=== PATIENT | female | born 1950 | race Caucasian/White ===

== ENCOUNTER 2018-09-29 10:30 | Outpatient (RCR) | payer MEDICARE, OTHER, SELFPAY ==
--- NOTE | 2018-09-08 14:25 | PT.OIE ---
Current Diagnoses Stress incontinence (female) (male) (09/08/18) Other female genital prolapse (09/08/18) Provider Visit Care Team Role Provider Type Floyd Bai MD Family Provider Physician Primary Care Provider Specialty: Internal Medicine Address: [address] [place] [address], [id number] Email: Shirin Dwyer MD Attending Provider Physician Specialty: COMPUTER SECURITY SPECIALIST Address: [address] [place] [address], [address] Email: [email or web address] Physical Therapy Initial Evaluation PT-OP-A Visit Information Start: 09/08/18 14:02 Freq: Status: Active Protocol: Document 09/08/18 14:02 [facility] (Rec: 09/08/18 14:25 [facility] [email or web address]) Out-Patient Physical Therapy Visit Information Visit Information Visit Type Initial Evaluation Visit Start Time 09:45 Visit Stop Time 10:30 Total Visit Minutes 45 Visit Number 1 Number of SIGNALS ANALYST Visits 0 Evaluation Information Evaluation Date 09/08/18 PT-OP-B Current Condition Start: 09/08/18 14:02 Freq: Status: Active Protocol: Document 09/08/18 14:02 [facility] (Rec: 09/08/18 14:25 [facility] [email or web address]) Current Condition History of Current Condition Onset Date 4-5 months ago Current Complaints c/o pelvic pressure and heaviness History of Current Condition 68 year old active female who was out gardening 4-5 months ago and began feeling complaints of pelvic pressure and soreness in the pelvic region Treatment Goals Patient/Caregiver Goals include avoiding surgery if she is able to and improving strength of the pelvic floor Current Functional Impairments (Reported) Functional Limitations- Recreation/ limitations with gardening, Hobbies has held off on aqua aerobics due to concern that it is putting too much pressure down on her bladder PT-OP-I Pelvic Floor Start: 09/08/18 14:02 Freq: Status: Active Protocol: Document 09/08/18 14:02 [facility] (Rec: 09/08/18 14:25 [facility] [email or web address]) Pelvic Floor Assessment Urine Pelvic Floor Surgery No Urinary Symptoms Falling Out Feeling/Heavy Leakage Size Small Leakage Cause Exercise Urge Leaks Per Day 1 SEMG (uV) Baseline 2.0 10 Second Contraction 6.1 Recruitment Pattern Fair Relaxation Fair Holding Fair Stability of Hold Fair SEMG Stability of Rest Fair Contraction Ability Manual Muscle Testing Left 3 Manual Muscle Testing Right 3 Manual Muscle Testing Anterior 3 Manual Muscle Testing Posterior 3 Comments Pelvic Floor Comments average contraction intensity on EMG biofeedback is 3.5 uv with 6.1 uv max contraction There is guarding on the left lateral wall of the levator ani and Zita reports tightness and history of pain in her left hip. Both rectocele and cystocele noted PT-OP-Q Treatments Start: 09/08/18 14:02 Freq: Status: Active Protocol: Document 09/08/18 14:02 [facility] (Rec: 09/08/18 14:25 [facility] [email or web address]) Therapeutic Exercises Supine Exercises 1 Supine Exercise Name Pelvic floor education with EMGbiofeedback and instruction in HEP Reps/Minutes long holds 10 seconds on 10 seconds off x 10 reps 3 xms per day PT-OP-T Assessment and Plan Start: 09/08/18 14:02 Freq: Status: Active Protocol: Document 09/08/18 14:02 [facility] (Rec: 09/08/18 14:25 [facility] [email or web address]) Physical Therapy Assessment Impairments Impairments Activity Tolerance Pain Soft Tissue Mobility Strength Goals Three Impairment muscle guarding and spasm of the left illiococcygeus Short Term Goal (STG) improve flexibility of the left hip and improve tone of the left lateral wall of the pelvic floor STG Duration 6 weeks Two Impairment c/o pelvic pressure and heaviness made worse with walking Disability Attorney Goal (LTG) Decrease c/o pelvic pressure and heaviness with pelvic floor, transverse abdominal and hip strengthening exercises LTG Duration 8 weeks One Impairment pelvic floor weakness with urinary stress incontinence Disability Attorney Goal (LTG) Improve strength of the pelvic floor to help decrease c/o urinary incontinence and improve support to the bladder and rectum LTG Duration 8 weeks Assessment Summary Assessment Zita presents to physical therapy today with weakness of the pelvic floor and elevated tone on the left lateral wall . She reports having hip issues on this side as well and has had a few cortisone injections into the left hip. She does present with a rectocele and bladder prolapse but she has only had symptoms of the prolapse for the past 5 months. She also presents with urinary stress incontinence symptoms. Zita is a good candidate for PT. Physical Therapy Plan Frequency and Duration Frequency of Treatment 1x/Week Duration of Treatment 8 weeks Plan of Care Start Date 09/08/18 Plan of Care End Date 11/03/18 Therapeutic Interventions Therapeutic Interventions Home Exercise Program Manual Therapy Neuromuscular Re-education Self-Care/Home Management Soft Tissue Mobilization Therapeutic Exercises Modalities Biofeedback Electric Stimulation Next Visit Focus/Plan Next Note Type Treatment Note Next Visit Plan begin working the lateral hip rotators and give stretches for hip flexibility
--- NOTE | 2018-09-08 14:25 | PT.OPPOC ---
Current Diagnoses Stress incontinence (female) (male) (09/08/18) Other female genital prolapse (09/08/18) Provider Visit Care Team Role Provider Type Floyd Bai MD Family Provider Physician Primary Care Provider Specialty: Internal Medicine Address: [address] [place] [address], [id number] Email: Shirin Dwyer MD Attending Provider Physician Specialty: LOG HAULER Address: [address] [place] [address], [id number] Email: [email or web address] Plan Of Care PT-OP-T Assessment and Plan Start: 09/08/18 14:02 Freq: Status: Active Protocol: Document 09/08/18 14:02 [facility] (Rec: 09/08/18 14:25 [facility] [email or web address]) Physical Therapy Assessment Impairments Impairments Activity Tolerance Pain Soft Tissue Mobility Strength Goals Three Impairment muscle guarding and spasm of the left illiococcygeus Short Term Goal (STG) improve flexibility of the left hip and improve tone of the left lateral wall of the pelvic floor STG Duration 6 weeks Two Impairment c/o pelvic pressure and heaviness made worse with walking Crankshaft Straightener Goal (LTG) Decrease c/o pelvic pressure and heaviness with pelvic floor, transverse abdominal and hip strengthening exercises LTG Duration 8 weeks One Impairment pelvic floor weakness with urinary stress incontinence Crankshaft Straightener Goal (LTG) Improve strength of the pelvic floor to help decrease c/o urinary incontinence and improve support to the bladder and rectum LTG Duration 8 weeks Assessment Summary Assessment Zita presents to physical therapy today with weakness of the pelvic floor and elevated tone on the left lateral wall . She reports having hip issues on this side as well and has had a few cortisone injections into the left hip. She does present with a rectocele and bladder prolapse but she has only had symptoms of the prolapse for the past 5 months. She also presents with urinary stress incontinence symptoms. Zita is a good candidate for PT. Physical Therapy Plan Frequency and Duration Frequency of Treatment 1x/Week Duration of Treatment 8 weeks Plan of Care Start Date 09/08/18 Plan of Care End Date 11/03/18 Therapeutic Interventions Therapeutic Interventions Home Exercise Program Manual Therapy Neuromuscular Re-education Self-Care/Home Management Soft Tissue Mobilization Therapeutic Exercises Modalities Biofeedback Electric Stimulation Next Visit Focus/Plan Next Note Type Treatment Note Next Visit Plan begin working the lateral hip rotators and give stretches for hip flexibility Plan of Care Dates Plan of Care Start Date 09/08/18 Plan of Care End Date 11/03/18 Please Sign and Return: I have reviewed this Plan of Care and certify that the skilled therapy services above are required to meet the patient?s needs. Physician Signature Date Printed Name and Credentials Clinical Instructor Signature Printed Name and Credentials
--- NOTE | 2018-09-15 18:01 | PT.OTN ---
Current Diagnoses Stress incontinence (female) (male) (09/15/18) Other female genital prolapse (09/15/18) Physical Therapy Treatment Note PT-OP-A Visit Information Start: 09/08/18 14:02 Freq: Status: Active Protocol: Document 09/15/18 12:58 [facility] (Rec: 09/15/18 12:59 [facility] [email or web address]) Out-Patient Physical Therapy Visit Information Visit Information Visit Type Treatment Note Visit Start Time 13:00 Visit Stop Time 13:45 Total Visit Minutes 45 Visit Number 2 Number of SUPERVISOR LIVESTOCK YARD Visits 0 PT-OP-B Current Condition Start: 09/08/18 14:02 Freq: Status: Active Protocol: Document 09/08/18 14:02 [facility] (Rec: 09/08/18 14:25 [facility] PTC) Current Condition History of Current Condition Onset Date 4-5 months ago Current Complaints c/o pelvic pressure and heaviness History of Current Condition 68 year old active female who was out gardening 4-5 months ago and began feeling complaints of pelvic pressure and soreness in the pelvic region Treatment Goals Patient/Caregiver Goals include avoiding surgery if she is able to and improving strength of the pelvic floor Current Functional Impairments (Reported) Functional Limitations- Recreation/ limitations with gardening, Hobbies has held off on aqua aerobics due to concern that it is putting too much pressure down on her bladder PT-OP-C Subjective Start: 09/08/18 14:02 Freq: Status: Active Protocol: Document 09/15/18 13:00 [facility] (Rec: 09/15/18 13:02 [facility] [email or web address]) OP-PT Subjective Patient Comments Patient Comments Did exercises every day, played 9 holes of golf could feel increased pelvic pressure Patient Reported Progress Same PT-OP-I Pelvic Floor Start: 09/08/18 14:02 Freq: Status: Active Protocol: Document 09/08/18 14:02 [facility] (Rec: 09/08/18 14:25 [facility] PTC) Pelvic Floor Assessment Urine Pelvic Floor Surgery No Urinary Symptoms Falling Out Feeling/Heavy Leakage Size Small Leakage Cause Exercise Urge Leaks Per Day 1 SEMG (uV) Baseline 2.0 10 Second Contraction 6.1 Recruitment Pattern Fair Relaxation Fair Holding Fair Stability of Hold Fair SEMG Stability of Rest Fair Contraction Ability Manual Muscle Testing Left 3 Manual Muscle Testing Right 3 Manual Muscle Testing Anterior 3 Manual Muscle Testing Posterior 3 Comments Pelvic Floor Comments average contraction intensity on EMG biofeedback is 3.5 uv with 6.1 uv max contraction There is guarding on the left lateral wall of the levator ani and Zita reports tightness and history of pain in her left hip. Both rectocele and cystocele noted PT-OP-Q Treatments Start: 09/08/18 14:02 Freq: Status: Active Protocol: Document 09/15/18 17:55 [facility] (Rec: 09/15/18 18:01 [facility] [email or web address]) Therapeutic Exercises Supine Exercises 5 Supine Exercise Name stretches for the hips of happy baby, rock backs, and piriformis stretch 4 Supine Exercise Name Roll outs with theraband Reps/Minutes 3 x 10 reps 3 Supine Exercise Name isometric adduction with ball squeeze Reps/Minutes 3x 10 2 Supine Exercise Name quick pelvic floor contractions 1 Supine Exercise Name Pelvic floor education with EMGbiofeedback and instruction in HEP Reps/Minutes long holds 10 seconds on 10 seconds off x 10 reps 3 xms per day Self-Care/Home Management Treatment Education Other Education began urge deference technique instruction and instruction to use a wedge to tip up the pelvis in supine PT-OP-T Assessment and Plan Start: 09/08/18 14:02 Freq: Status: Active Protocol: Document 09/15/18 17:55 [facility] (Rec: 09/15/18 18:01 [facility] [email or web address]) Physical Therapy Assessment Assessment Summary Assessment Good tolerance today for addition of new exercises and improved recruitment of pelvic floor to 5.1 uv average and max of 8.0 uv Physical Therapy Plan Frequency and Duration Frequency of Treatment 1x/Week Duration of Treatment 8 weeks Plan of Care Start Date 09/08/18 Plan of Care End Date 11/03/18 Therapeutic Interventions Therapeutic Interventions Home Exercise Program Manual Therapy Neuromuscular Re-education Self-Care/Home Management Soft Tissue Mobilization Therapeutic Exercises Modalities Biofeedback Electric Stimulation Next Visit Focus/Plan Next Note Type Treatment Note Next Visit Plan begin clam shells and eccentric control
--- NOTE | 2018-09-22 11:42 | PT.OTN ---
Current Diagnoses Stress incontinence (female) (male) (09/22/18) Other female genital prolapse (09/22/18) Physical Therapy Treatment Note PT-OP-A Visit Information Start: 09/08/18 14:02 Freq: Status: Active Protocol: Document 09/22/18 11:34 [facility] (Rec: 09/22/18 11:42 [facility] [email or web address]) Out-Patient Physical Therapy Visit Information Visit Information Visit Type Treatment Note Visit Start Time 10:30 Visit Stop Time 11:15 Total Visit Minutes 45 Visit Number 3 Number of TIMBER RIDER Visits 0 Evaluation Information Evaluation Date 09/08/18 PT-OP-B Current Condition Start: 09/08/18 14:02 Freq: Status: Active Protocol: Document 09/08/18 14:02 [facility] (Rec: 09/08/18 14:25 [facility] [email or web address]) Current Condition History of Current Condition Onset Date 4-5 months ago Current Complaints c/o pelvic pressure and heaviness History of Current Condition 68 year old active female who was out gardening 4-5 months ago and began feeling complaints of pelvic pressure and soreness in the pelvic region Treatment Goals Patient/Caregiver Goals include avoiding surgery if she is able to and improving strength of the pelvic floor Current Functional Impairments (Reported) Functional Limitations- Recreation/ limitations with gardening, Hobbies has held off on aqua aerobics due to concern that it is putting too much pressure down on her bladder PT-OP-C Subjective Start: 09/08/18 14:02 Freq: Status: Active Protocol: Document 09/22/18 10:34 [facility] (Rec: 09/22/18 10:37 [facility] [email or web address]) OP-PT Subjective Patient Comments Patient Comments did her exericses a couple of times, feels maybe like the tightness is better Patient Reported Progress Improving PT-OP-I Pelvic Floor Start: 09/08/18 14:02 Freq: Status: Active Protocol: Document 09/08/18 14:02 [facility] (Rec: 09/08/18 14:25 [facility] [email or web address]) Pelvic Floor Assessment Urine Pelvic Floor Surgery No Urinary Symptoms Falling Out Feeling/Heavy Leakage Size Small Leakage Cause Exercise Urge Leaks Per Day 1 SEMG (uV) Baseline 2.0 10 Second Contraction 6.1 Recruitment Pattern Fair Relaxation Fair Holding Fair Stability of Hold Fair SEMG Stability of Rest Fair Contraction Ability Manual Muscle Testing Left 3 Manual Muscle Testing Right 3 Manual Muscle Testing Anterior 3 Manual Muscle Testing Posterior 3 Comments Pelvic Floor Comments average contraction intensity on EMG biofeedback is 3.5 uv with 6.1 uv max contraction There is guarding on the left lateral wall of the levator ani and Zita reports tightness and history of pain in her left hip. Both rectocele and cystocele noted PT-OP-Q Treatments Start: 09/08/18 14:02 Freq: Status: Active Protocol: Document 09/22/18 11:34 [facility] (Rec: 09/22/18 11:42 [facility] [email or web address]) Therapeutic Exercises Supine Exercises 6 Supine Exercise Name TA facilitation with marches 5 Supine Exercise Name stretches for the hips of happy baby, rock backs, and piriformis stretch 4 Supine Exercise Name Roll outs with theraband Reps/Minutes 3 x 10 reps 3 Supine Exercise Name isometric adduction with ball squeeze Reps/Minutes 3x 10 2 Supine Exercise Name quick pelvic floor contractions 1 Supine Exercise Name Pelvic floor education with EMG biofeedback and instruction in HEP Reps/Minutes long holds 10 seconds on 10 seconds off x 10 reps 3 xms per day Prone Exercises 2 Prone Exercise Name prone cobra stretch 1 Prone Exercise Name prone pelvic floor facilitation PT-OP-T Assessment and Plan Start: 09/08/18 14:02 Freq: Status: Active Protocol: Document 09/22/18 11:34 [facility] (Rec: 09/22/18 11:42 [facility] [email or web address]) Physical Therapy Assessment Assessment Summary Assessment much improved pelvic floor facilitation today with average of 11.4 and max of 24. 4 Physical Therapy Plan Frequency and Duration Frequency of Treatment 1x/Week Duration of Treatment 8 weeks Plan of Care Start Date 09/08/18 Plan of Care End Date 11/03/18 Therapeutic Interventions Therapeutic Interventions Home Exercise Program Manual Therapy Neuromuscular Re-education Self-Care/Home Management Soft Tissue Mobilization Therapeutic Exercises Modalities Biofeedback Electric Stimulation Next Visit Focus/Plan Next Note Type Treatment Note Next Visit Plan revisit TA facilitation and add clam shells next visit
--- NOTE | 2018-09-29 13:59 | PT.OTN ---
Current Diagnoses Stress incontinence (female) (male) (09/29/18) Other female genital prolapse (09/29/18) Physical Therapy Treatment Note PT-OP-A Visit Information Start: 09/08/18 14:02 Freq: Status: Active Protocol: Document 09/29/18 13:55 [facility] (Rec: 09/29/18 13:59 [facility] [email or web address]) Out-Patient Physical Therapy Visit Information Visit Information Visit Type Treatment Note Visit Start Time 09:45 Visit Stop Time 10:30 Total Visit Minutes 45 Visit Number 4 Number of INSULATION ENGINEMAN Visits 0 Evaluation Information Evaluation Date 09/08/18 PT-OP-B Current Condition Start: 09/08/18 14:02 Freq: Status: Active Protocol: Document 09/08/18 14:02 [facility] (Rec: 09/08/18 14:25 [facility] [email or web address]) Current Condition History of Current Condition Onset Date 4-5 months ago Current Complaints c/o pelvic pressure and heaviness History of Current Condition 68 year old active female who was out gardening 4-5 months ago and began feeling complaints of pelvic pressure and soreness in the pelvic region Treatment Goals Patient/Caregiver Goals include avoiding surgery if she is able to and improving strength of the pelvic floor Current Functional Impairments (Reported) Functional Limitations- Recreation/ limitations with gardening, Hobbies has held off on aqua aerobics due to concern that it is putting too much pressure down on her bladder PT-OP-C Subjective Start: 09/08/18 14:02 Freq: Status: Active Protocol: Document 09/29/18 13:55 [facility] (Rec: 09/29/18 13:59 [facility] [email or web address]) OP-PT Subjective Patient Comments Patient Comments Zita reports she tried the urge deference technique and it worked. She is feeling more control over the urgency and can also feel that she is more aware now of her pelvic floor contractions Patient Reported Progress Improving PT-OP-I Pelvic Floor Start: 09/08/18 14:02 Freq: Status: Active Protocol: Document 09/08/18 14:02 [facility] (Rec: 09/08/18 14:25 [facility] [email or web address]) Pelvic Floor Assessment Urine Pelvic Floor Surgery No Urinary Symptoms Falling Out Feeling/Heavy Leakage Size Small Leakage Cause Exercise Urge Leaks Per Day 1 SEMG (uV) Baseline 2.0 10 Second Contraction 6.1 Recruitment Pattern Fair Relaxation Fair Holding Fair Stability of Hold Fair SEMG Stability of Rest Fair Contraction Ability Manual Muscle Testing Left 3 Manual Muscle Testing Right 3 Manual Muscle Testing Anterior 3 Manual Muscle Testing Posterior 3 Comments Pelvic Floor Comments average contraction intensity on EMG biofeedback is 3.5 uv with 6.1 uv max contraction There is guarding on the left lateral wall of the levator ani and Zita reports tightness and history of pain in her left hip. Both rectocele and cystocele noted PT-OP-Q Treatments Start: 09/08/18 14:02 Freq: Status: Active Protocol: Document 09/29/18 13:55 [facility] (Rec: 09/29/18 13:59 [facility] [email or web address]) Therapeutic Exercises Supine Exercises 6 Supine Exercise Name TA facilitation with marches 4 Supine Exercise Name Roll outs with theraband Reps/Minutes 3 x 10 reps 3 Supine Exercise Name isometric adduction with ball squeeze Reps/Minutes 3x 10 2 Supine Exercise Name quick pelvic floor contractions 1 Supine Exercise Name Pelvic floor education with EMGbiofeedback and instruction in HEP Reps/Minutes long holds 10 seconds on 10 seconds off x 10 reps 3 xms per day Sidelying Exercises 1 Sidelying Exercise Name sidelying clam shells Reps/Minutes 3x10 PT-OP-T Assessment and Plan Start: 09/08/18 14:02 Freq: Status: Active Protocol: Document 09/29/18 13:55 [facility] (Rec: 09/29/18 13:59 [facility] [email or web address]) Physical Therapy Assessment Assessment Summary Assessment Average on EMG today is 13.3 with max of 24 uv now. Zita is continuing to demonstrate good improvement of symptoms. Physical Therapy Plan Frequency and Duration Frequency of Treatment 1x/Week Duration of Treatment 8 weeks Plan of Care Start Date 09/08/18 Plan of Care End Date 11/03/18 Therapeutic Interventions Therapeutic Interventions Home Exercise Program Manual Therapy Neuromuscular Re-education Self-Care/Home Management Soft Tissue Mobilization Therapeutic Exercises Modalities Biofeedback Electric Stimulation Next Visit Focus/Plan Next Note Type Progress Note Next Visit Plan work on standing pelvic floor contractions and hip mobility with her golf swing
--- NOTE | 2019-01-11 11:03 | PT.OPDS ---
Current Diagnoses Stress incontinence (female) (male) (09/29/18) Other female genital prolapse (09/29/18) Provider Visit Care Team Role Provider Type Floyd Bai MD Family Provider Physician Primary Care Provider Specialty: Internal Medicine Address: [address] [place] [address], [id number] Email: Shirin Dwyer MD Attending Provider Physician Specialty: [employer] Address: [address] [place] [address], [id number] Email: [email or web address] Visit Number Visit Number 4 Discharge Summary PT-OP-B Current Condition Start: 09/08/18 14:02 Freq: Status: Active Protocol: Document 09/08/18 14:02 [facility] (Rec: 09/08/18 14:25 [facility] [email or web address]) Current Condition History of Current Condition Onset Date 4-5 months ago Current Complaints c/o pelvic pressure and heaviness History of Current Condition 68 year old active female who was out gardening 4-5 months ago and began feeling complaints of pelvic pressure and soreness in the pelvic region Treatment Goals Patient/Caregiver Goals include avoiding surgery if she is able to and improving strength of the pelvic floor Current Functional Impairments (Reported) Functional Limitations- Recreation/ limitations with gardening, Hobbies has held off on aqua aerobics due to concern that it is putting too much pressure down on her bladder PT-OP-C Subjective Start: 09/08/18 14:02 Freq: Status: Active Protocol: Document 09/29/18 13:55 [facility] (Rec: 09/29/18 13:59 [facility] [id number]) OP-PT Subjective Patient Comments Patient Comments Zita reports she tried the urge deference technique and it worked. She is feeling more control over the urgency and can also feel that she is more aware now of her pelvic floor contractions Patient Reported Progress Improving PT-OP-I Pelvic Floor Start: 09/08/18 14:02 Freq: Status: Active Protocol: Document 09/08/18 14:02 [facility] (Rec: 09/08/18 14:25 [facility] [email or web address]) Pelvic Floor Assessment Urine Pelvic Floor Surgery No Urinary Symptoms Falling Out Feeling/Heavy Leakage Size Small Leakage Cause Exercise Urge Leaks Per Day 1 SEMG (uV) Baseline 2.0 10 Second Contraction 6.1 Recruitment Pattern Fair Relaxation Fair Holding Fair Stability of Hold Fair SEMG Stability of Rest Fair Contraction Ability Manual Muscle Testing Left 3 Manual Muscle Testing Right 3 Manual Muscle Testing Anterior 3 Manual Muscle Testing Posterior 3 Comments Pelvic Floor Comments average contraction intensity on EMG biofeedback is 3.5 uv with 6.1 uv max contraction There is guarding on the left lateral wall of the levator ani and Zita reports tightness and history of pain in her left hip. Both rectocele and cystocele noted PT-OP-T Assessment and Plan Start: 09/08/18 14:02 Freq: Status: Active Protocol: Document 01/11/19 11:02 [facility] (Rec: 01/11/19 11:03 [facility] [id number]) Physical Therapy Assessment Progress Towards Goals Progress Towards Goals Progressing Toward Goals Assessment Summary Assessment Average on EMG today is 13.3 with max of 24 uv now. Zita is continuing to demonstrate good improvement of symptoms. She wishes to be discharged from PT at this time and will work on her own with exercises Physical Therapy Plan Discharge Physical Therapy Discharge Reasons No Longer Attending PT Discharge Comments Zita will work on her exercises indepedently at this time.
== END 2019-01-17 10:38 ==
LOC: PHYS 10:30
PROVIDERS: Family Provider Internal Medicine; PCP Internal Medicine; Visit Provider Obstetrics & Gynecology
DX: N81.89 Other female genital prolapse (principal); N39.3 Stress incontinence (female) (male)
CPT/HCPCS: 97110; 97161

== ENCOUNTER 2019-08-16 09:18 | Day surgery (SDC) | payer MEDICARE, OTHER, SELFPAY ==
[2019-08-16] VITALS (7 sets, daily range): BP systolic 116–143; BP diastolic 49–83; PULSE 54–74; RESP 12–16; TEMP 36.6–37.2; O2SAT 95–96; BMI 27.4
[2019-08-16] MEDS: SODIUM CHLORIDE 0.9% 1,000 ML 70 ML IV (10:15)
--- NOTE | 2019-08-16 11:55 | PM.HP.1 ---
History of Present Illness History of Present Illness Date Patient Seen: 08/16/19 Time Patient Seen: 11:55 Chief complaint: [id number] Narrative: Patient is a 69 year old female who presented for colonoscopy. Patient has never had polyps but has had several siblings with polyps. Patient History Medical History Prolapse of bladder (Acute) Social History household members: spouse Smoking Status: Never smoker Family & Social History Social History: household members spouse Tobacco & Substance use: Smoking Status Never smoker Meds Home Medications and Allergies Home Medications Medication Instructions Recorded Confirmed Type aspirin 81 mg tablet,delayed 81 mg PO DAILY 08/05/18 08/16/19 History release cholecalciferol (vitamin D3) 2,000 2,000 unit PO DAILY 08/05/18 08/16/19 History unit capsule loratadine 10 mg tablet 10 mg PO DAILY 08/05/18 08/05/18 History Allergies Allergy/AdvReac Type Severity Reaction Status Date / Time No Known Drug Allergies Allergy Unverified 08/05/18 16:20 Review of Systems Review of Systems ROS Unobtainable: All systems reviewed & are unremarkable except as noted in HPI and below Exam Vital Signs (past 8 hours): - 08/16/19 10:04 Temperature 97.8 F Pulse Rate 67 Respiratory Rate 15 Blood Pressure 137/83 Pulse Oximetry 96 Oxygen Delivery Method Room Air Narrative Exam Narrative: No acute distress Const General: cooperative, healthy appearing, comfortable and well developed Nutritional Appearance: average body habitus and well nourished Orientation: alert, awake and oriented x3 HENMT Head: atraumatic Nose: external nose normal Resp Effort & Inspection: normal respiratory effort and able to speak in complete sentences Auscultation: clear to auscultation bilaterally Cardio Rate: regular rate Rhythm: regular rhythm Heart Sounds: S1 normal and S2 normal GI Palpation: soft and No tender Auscultation: normal bowel sounds Extrem General: normal to inspection and no pedal edema Assessment & Plan Assessment & Plan narrative: 1. Family history of colon polyps Colonoscopy today, further recommendations will follow
--- NOTE | 2019-08-16 12:11 | PM.OP.ENDO ---
Operative Date/Time/Diagnoses Date of procedure: 08/16/19 Time of procedure: 12:02 Pre-op diagnosis: Family history of polyps Procedure Notes Procedure in detail: Surgeon: Maggi Villaseñor DO Procedure: Colonoscopy aborted in the sigmoid colon due to poor prep Preoperative diagnosis: Family history colon polyps Postoperative diagnosis: Aborted colonoscopy due to poor prep Medications: Conscious sedation using 5 mg IV of Midazolam and 100 mcg IV of Fentanyl Preanesthesia Assessment An H and P was performed/updated and the Px?s ASA class is 2. The procedure was discussed in detail with the patient. The potential risks and complications including infection, bleeding, missed lesions, perforation, need for surgery in case of perforation, prolonged hospital stay, and were explained. A brief question and answer period was allotted and once all questions were answered, informed consent was obtained. The patient was brought back to the procedure room and placed on standard monitoring. The patient?s vital signs were monitored continuously throughout the entire procedure. Prior to starting, a timeout was performed to confirm the patient?s identity, allergies, medications, and procedure. Procedure in detail The patient was placed in left lateral decubitus position and once adequate sedation was obtained a TRISH was performed. The digital rectal examination did not reveal any palpable lesions. The tip of the colonoscope was placed in the anal canal and advanced to the sigmoid colon. Unfortunately solid stool was encountered and due to significant level of poor preparation the procedure was aborted. The patient tolerated the procedure well and will be brought back to the recovery area to be discharged once criteria are met. The total physician intraservice time was 8min. Complications There were no complications and estimated blood loss was minimal. Recommendations: Resume previous diet Continue outPx medications Repeat colonoscopy with extended prep due to poor preparation An emergency contact number was given to the patient for any complications related to the procedure
[2019-08-16] MEDS: fentaNYL 250 MCG/5 ML INJ IV (12:12)
[2019-08-16] MEDS: MIDAZOLAM 5 MG/5 ML VIAL IV (12:13)
--- NOTE | 2019-08-16 12:32 | SUR.PHASEI ---
Patient received in PACU somnolent, but arouses to voice. SB with HR in the 50's to 60's. Currently on RA. Denies pain and nausea.
== END 2019-08-16 13:10 | disposition home or self-care (01) ==
PROVIDERS: Family Provider Internal Medicine; PCP Internal Medicine; Visit Provider Student in an Organized Health Care Education/Training Program
PROC: 0DJD8ZZ Inspection of Lower Intestinal Tract, Via Natural or Artificial Opening Endoscopic (ICD-10-PCS; CPT 45378; principal; 2019-08-16 11:00)
DX: Z12.11 Encounter for screening for malignant neoplasm of colon (principal); Z53.09 Procedure and treatment not carried out because of other contraindication
CPT/HCPCS: G0104; J2250; J3010

== ENCOUNTER → 2023-02-25 08:43 | Outpatient (CLI) | payer MEDICARE, OTHER, SELFPAY ==
[2023-02-25 09:22] LABS: Hematocrit 41.1 % (36-46); Hemoglobin 13.9 g/dL (12.0-16.0); Mean Corpuscular HGB Conc 33.9 % (30-36); Mean Corpuscular Hemoglobin 30.9 PG (26-34); Mean Corpuscular Volume 91.2 fL (80-100); Platelet Count 305 X10^3/uL (150-400); Red Blood Cell Count 4.51 X10^6/uL (4.0-5.2); Red Cell Distribution Width 13.1 % (11.6-14.8); White Blood Cell Count 5.1 X10^3/uL (4.5-11.0)
[2023-02-25 09:35] LABS: Alanine Aminotransferase 28 IU/L (<35); Albumin 4.4 g/dL (3.5-5.0); Albumin Globulin Ratio 1.4 (1.0-2.8); Alkaline Phosphatase 69 U/L (38-126); Aspartate Aminotransferase 26 IU/L (14-36); BUN Creatinine Ratio 30.6 (6-22); Bilirubin Total 0.4 mg/dL (0.2-1.3); Blood Urea Nitrogen 19 mg/dL (7-17); Calcium 9.2 mg/dL (8.4-10.2); Carbon Dioxide 27 mmol/L (22-32); Chloride 105 mmol/L (98-107); Cholesterol 181 mg/dL (140-199); Estimated Glomerular Filt Rate > 60 mL/min (>60); Globulin 3.1 g/dL (1.7-4.1); Glucose 108 mg/dL (80-110); HDL Cholesterol 104 mg/dL (40-60); HEMOLYSIS < 15 (0-50); LDL Cholesterol Calculated 69 mg/dL (<100); Sodium 137 mmol/L (137-145); Total Protein 7.5 g/dL (6.3-8.2); Triglycerides 40 mg/dL (35-150)
[2023-02-25 10:18] LABS: TSH w/ Reflex to FT4 2.67 uIU/mL (0.47-4.68)
== END ==
PROVIDERS: Family Provider Internal Medicine; PCP Internal Medicine; Referring Provider Internal Medicine; Visit Provider Internal Medicine
DX: E78.2 Mixed hyperlipidemia (principal); R03.0 Elevated blood-pressure reading, without diagnosis of hypertension
CPT/HCPCS: 36415; 80053; 80061; 84443; 85027

== ENCOUNTER → 2023-06-22 08:34 | Outpatient (CLI) | payer MEDICARE, OTHER, SELFPAY ==
--- NOTE | 2023-06-22 08:35 | DI.RAD.S_ITS ---
PROCEDURE: XR FINGER RT MIN 2V INDICATIONS: Right finger pain with swelling TECHNIQUE: PA hand, 2 views of the middle finger acquired. COMPARISON: None. FINDINGS: Bones: No acute fractures or dislocations. No suspicious bony lesions. Generalized osteopenia. Multifocal degenerative changes throughout the hand and wrist, most notably at the 1st carpometacarpal joint and the triscaphe joint. Soft tissues: No suspicious soft tissue calcifications. Mild soft tissue edema in the middle finger at the level of the proximal interphalangeal joint. IMPRESSION: 1. Mild nonspecific soft tissue edema. No acute osseous abnormality. 2. 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 Approved by: Nabeel Landin M.D. on 06/22/2023 at 13:03
== END ==
PROVIDERS: Family Provider Internal Medicine; PCP Internal Medicine; Referring Provider Internal Medicine; Visit Provider Internal Medicine
DX: M18.11 Unilateral primary osteoarthritis of first carpometacarpal joint, right hand (principal); M19.031 Primary osteoarthritis, right wrist; M79.644 Pain in right finger(s); M79.89 Other specified soft tissue disorders
CPT/HCPCS: 73140

== ENCOUNTER → 2024-02-28 10:44 | Outpatient (CLI) | payer MEDICARE, OTHER, SELFPAY ==
[2024-02-28 12:11] LABS: Aspartate Aminotransferase 31 IU/L (14-36); BUN Creatinine Ratio 24.3 (6-22); Blood Urea Nitrogen 17 mg/dL (7-17); Calcium 9.7 mg/dL (8.4-10.2); Carbon Dioxide 27 mmol/L (22-32); Chloride 105 mmol/L (98-107); Cholesterol 186 mg/dL (140-199); Estimated Glomerular Filt Rate > 60 mL/min (>60); Glucose 105 mg/dL (80-110); HEMOLYSIS < 15 (0-50); Potassium 5.2 mmol/L (3.4-5.1); Sodium 138 mmol/L (137-145); Triglycerides 49 mg/dL (35-150)
[2024-02-28 12:20] LABS: HDL Cholesterol 121 mg/dL (40-60); LDL Cholesterol Calculated 55 mg/dL (<100)
== END ==
PROVIDERS: Family Provider Internal Medicine; PCP Internal Medicine; Referring Provider Internal Medicine; Visit Provider Internal Medicine
DX: E78.2 Mixed hyperlipidemia (principal); R03.0 Elevated blood-pressure reading, without diagnosis of hypertension
CPT/HCPCS: 36415; 80048; 80061; 84450

== ENCOUNTER → 2025-03-27 14:00 | Outpatient (CLI) | payer MEDICARE, OTHER, SELFPAY ==
[2025-03-27 15:40] LABS: Aspartate Aminotransferase 32 IU/L (14-36); BUN Creatinine Ratio 23.5 (6-22); Blood Urea Nitrogen 19 mg/dL (7-17); Calcium 9.3 mg/dL (8.4-10.2); Carbon Dioxide 23 mmol/L (22-32); Chloride 104 mmol/L (98-107); Cholesterol 179 mg/dL (140-199); Estimated Glomerular Filt Rate > 60 mL/min (>60); Glucose 90 mg/dL (70-99); HEMOLYSIS < 15 (0-50); Potassium 4.3 mmol/L (3.4-5.1); Sodium 137 mmol/L (137-145); Triglycerides 48 mg/dL (35-150)
[2025-03-27 15:53] LABS: HDL Cholesterol 112 mg/dL (40-60); LDL Cholesterol Calculated 57 mg/dL (<100)
== END ==
PROVIDERS: Family Provider Internal Medicine; PCP Internal Medicine; Referring Provider Internal Medicine; Visit Provider Internal Medicine
DX: E78.2 Mixed hyperlipidemia (principal)
CPT/HCPCS: 36415; 80048; 80061; 84450

== ENCOUNTER → 2025-05-31 11:30 | Outpatient (CLI) | payer MEDICARE, OTHER, SELFPAY ==
--- NOTE | 2025-05-31 11:34 | EKG_ITS ---
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
[2025-05-31 12:31] LABS: Hematocrit 40.9 % (36-46); Hemoglobin 14.1 g/dL (12.0-16.0); Mean Corpuscular HGB Conc 34.5 % (30-36); Mean Corpuscular Hemoglobin 31.9 PG (26-34); Mean Corpuscular Volume 92.4 fL (80-100); Platelet Count 305 X10^3/uL (150-400)
[2025-05-31 12:43] LABS: Bilirubin Urine UA NEGATIVE (NEGATIVE); Color Urine UA YELLOW; Glucose Urine UA NEGATIVE (Negative); Ketones Urine UA NEGATIVE (NEGATIVE); Leukocyte Esterase Urine UA TRACE (NEGATIVE); Nitrite Urine UA POSITIVE (Negative); Occult Blood Urine UA TRACE-INTACT (Negative); Protein Urine UA NEGATIVE (Negative); Specific Gravity Urine UA 1.020 (1.000-1.035); Urobilinogen Urine UA 1.0 E.U./dL (0.2)
[2025-05-31 12:44] LABS: Appearance Urine UA CLOUDY; pH Urine UA 6.0 (4.5-8.0)
[2025-05-31 12:52] LABS: Culture Indicated Urine Specimen Cultured
[2025-05-31 13:13] LABS: Blood Urea Nitrogen 24 mg/dL (7-17); Calcium 9.0 mg/dL (8.4-10.2); Carbon Dioxide 21 mmol/L (22-32); Chloride 105 mmol/L (98-107); Estimated Glomerular Filt Rate 54 mL/min (>60); Glucose 97 mg/dL (70-99); HEMOLYSIS < 15 (0-50); Potassium 4.7 mmol/L (3.4-5.1); Sodium 135 mmol/L (137-145)
== END ==
PROVIDERS: PCP Internal Medicine; Referring Provider Internal Medicine; Visit Provider Internal Medicine
DX: Z01.818 Encounter for other preprocedural examination (principal); N81.10 Cystocele, unspecified; N81.6 Rectocele; R03.0 Elevated blood-pressure reading, without diagnosis of hypertension; E78.2 Mixed hyperlipidemia
CPT/HCPCS: 36415; 80048; 81001; 85027; 87077; 87086; 87186; 93005

== ENCOUNTER → 2025-05-31 12:00 | Outpatient (CLI) | payer MEDICARE, OTHER, SELFPAY | PROVIDERS: PCP Internal Medicine; Referring Provider Internal Medicine; Visit Provider Internal Medicine | DX: Z01.818 Encounter for other preprocedural examination (principal) | CPT/HCPCS: 36415; 80048; 81001; 85027; 87077; 87086; 87186; 93005; 93010 ==

== ENCOUNTER → 2025-10-29 14:37 | Outpatient (CLI) | payer MEDICARE, OTHER, SELFPAY ==
--- NOTE | 2025-10-29 14:39 | DI.RAD.S_ITS ---
PROCEDURE: XR CHEST 2V INDICATIONS: followup pneumonia lung lung ([facility]) TECHNIQUE: 2 views of the chest were acquired. COMPARISON: None. FINDINGS: Surgical changes and devices: None. Lungs and pleura: Lungs are clear. No pleural effusions or pneumothorax. Bronchial wall thickening is noted. Mediastinum: Mediastinal contours are normal. Heart size is normal. Bones and chest wall: No suspicious bony abnormalities. Soft tissues appear unremarkable. Multilevel degenerative disc disease noted. Dextroscoliosis of the lower thoracic spine noted. Probable small hiatal hernia. IMPRESSION: Bronchial wall thickening is noted. These findings are nonspecific but can be due to reactive airways disease or bronchitis. No consolidation. No acute cardiopulmonary abnormality is seen. Dictated by: Diane Aleman M.D. on 10/30/2025 at 10:03 Approved by: Diane Aleman M.D. on 10/30/2025 at 10:08
== END ==
PROVIDERS: PCP Internal Medicine; Referring Provider Internal Medicine; Visit Provider Internal Medicine
DX: J18.9 Pneumonia, unspecified organism (principal)
CPT/HCPCS: 71046